=== PATIENT | female | born 1940 | race Caucasian/White ===

== ENCOUNTER 2018-01-28 14:55 | Inpatient (IN) | payer OTHER, SELFPAY ==
[2018-01-28] VITALS (8 sets, daily range): BP systolic 126–144; BP diastolic 39–64
[~2018-01-28] VITALS: Ht 160 cm; Wt 86.6 kg
[~2018-01-28 14:55] MED LIST: ALEVE220 MG PO; ASPIR 8181 MG PO; ASPIRIN325 PO; ATORVASTATIN CA40 MG PO; HYDROCODONE-AP1 EAC6 PO; IMDUR 30 MG TAB30 M1 PO; KLOR-CON 1010 MEQ PO; LANSOPRAZOLE15 MG PO; LISINOPRIL2.5 MG PO; LISINOPRIL5 MG PO; LOPRESSOR25 PO; MAXZIDE-25 MG1 EACH PO; NITROGLYCERIN0.4 MG SUBLING; PAXIL10 MG; PLAVIX 75 MG TA75 M1 PO; PRAVACHOL40 MG PO; PREMARIN0.3 MG PO; PREVACID 30MG C30 M1 PO; PROTONIX40 M1 PO; TRIAMTERENE-HC1 EAC1 PO; TYLENOL325 MG PO; VITAMIN B-12500 MCG PO
[2018-01-28] MEDS ORDERED: PLAVIX 75 MG TA75 M1 PO ×2 (15:13→20:43)
--- NOTE | 2018-01-28 15:20 | NUR ---
PT DISCUSSING PLAN OF CARE WITH ED PHYSICIAN. DR. GUAJARDO STATES THAT DR. PANTOJA IS SENDING PT TO [facility] FOR A TEMP PACEMAKER.
[2018-01-28 15:26] LABS: ABSOLUTE EOSINOPHILS 0.1 thou/uL (0.0-0.7); ABSOLUTE LYMPHOCYTES 2.4 thou/uL (0.8-5.3); ABSOLUTE MONOCYTES 0.9 thou/uL (0.0-1.2); ABSOLUTE NEUTROPHILS 8.2 thou/uL (1.6-8.1); BASOPHILS 0.4 %; HEMATOCRIT 37.3 % (37.0-47.0); HEMOGLOBIN 12.2 gm/dL (12.0-15.0); LYMPHOCYTES 20.3 %; MCH 29.3 pg (26.0-34.0); MCHC 32.7 g/dL (28.0-37.0); MCV 89.4 fL (80.0-100.0); MONOCYTES 7.9 %; MPV 8.7 fl. (7.2-11.1); NUCLEATED RBCS 0 /100WBC; PLATELET COUNT* 298 thou/uL (150-400); POLYS 70.4 %; RBC 4.17 mil/uL (4.20-5.00); RDW-CV 14.5 % (10.5-14.5); WBC 11.6 thou/uL (4.0-11.0)
[2018-01-28 15:30] LABS: CALCIUM 9.6 mg/dL (8.5-10.1); CREATININE 1.5 mg/dL (0.6-1.3); POTASSIUM 4.7 mmol/L (3.5-5.1)
[2018-01-28 15:37] LABS: APTT 27.6 Seconds (25.0-31.3); INR 1.1; PROTIME 10.5 Seconds (9.20-11.50)
--- NOTE | 2018-01-28 15:43 | NUR ---
DR. PANTOJA SPEAKING WITH PT.
[2018-01-28 15:44] LABS: ALBUMIN 3.4 g/dL (3.4-5.0); TOTAL BILIRUBIN 0.3 mg/dL (<0.1-1.0); TOTAL PROTEIN 7.6 g/dL (6.4-8.2)
[2018-01-28 16:13] LABS: NT-PRO BRAIN NAT PEPTIDE 2160 pg/mL (<300); TROPONIN-I LEVEL <0.06 ng/mL (<0.06)
--- NOTE | 2018-01-28 16:48 | H ---
[address] [address] HISTORY AND PHYSICAL Name: MYNORCHATO L Room: [facility] Ling#: [id number] Admission: 01/28/18 Attend Phys: Discharge: 01/28/18 Date of : 44 Report #: [id number] THIS REPORT FOR: //name// CC: Filemon Palacio DATE OF SERVICE: 01/28/2018 INDICATION: Complete heart block. HISTORY OF PRESENT ILLNESS: The patient is a very pleasant 77-year-old female who is well known to myself. She has a history of coronary artery disease with previous percutaneous coronary intervention to the right coronary artery in 2014. She has normal left ventricular systolic function by studies. She has mild aortic stenosis. Cardiac risk factors include hypertension, hyperlipidemia and type 2 diabetes mellitus for which she takes medication. She has a history of bilateral carotid disease as well, status post both right and left carotid endarterectomy. Stress testing last year was unremarkable. For the last 3 days, she has been feeling fatigued. She has been having some midsternal discomfort. She especially noted this when walking around stores with her family today. She was seen in the Emergency Room and found to be in complete heart block. She at present is not having chest discomfort. PAST MEDICAL HISTORY: 1. Coronary artery disease. 2. Carotid artery disease. 3. Diabetes. 4. Hyperlipidemia. 5. Hypertension. 6. Mild aortic stenosis. PAST SURGICAL HISTORY: Right carotid endarterectomy, left carotid endarterectomy, hysterectomy, percutaneous coronary intervention. FAMILY HISTORY: Positive for coronary artery disease. SOCIAL HISTORY: The patient quit smoking remotely. She drinks alcohol rarely. HOME MEDICATIONS: Aspirin 325 mg p.o. daily, Lipitor 40 mg p.o. at bedtime, Plavix 75 mg daily, Imdur 60 mg daily, lisinopril 20 mg daily, triamterene/hydrochlorothiazide 75/50 one tablet daily, potassium chloride 10 mEq daily, Protonix 40 mg q.a.m., Zantac 150 mg b.i.d., metformin 500 mg daily, Nitrostat p.r.n., Tylenol p.r.n., vitamin D 1000 units daily, diltiazem [address] [place] [address] HISTORY AND PHYSICAL Name: CHATO LOWE Room: [facility]#: [id number] Admission: 01/28/18 Attend Phys: Discharge: 01/28/18 Date of : 44 Report #: [id number]. REVIEW OF SYSTEMS: A 14-point review of systems as per HPI, otherwise unremarkable. PHYSICAL EXAMINATION: VITAL SIGNS: Blood pressure is 181/57 with a pulse rate of 37. GENERAL: She is a pleasant lady who is not in distress. HEENT: Extraocular muscles intact. Mucous membranes are moist. NECK: Shows no jugular venous distention. CHEST: Reveals clear lung solares. CARDIOVASCULAR: Reveals a bradycardic rhythm that is regular. There is a soft grade 1-2/6 systolic ejection murmur heard at the right upper sternal border. ABDOMEN: Reveals normal bowel sounds. Abdomen is soft, nontender. EXTREMITIES: Shows no edema. Peripheral pulses are palpable. SKIN: Warm and dry. LABORATORY DATA: A 12-lead EKG shows complete heart block. IMPRESSION AND RECOMMENDATIONS: 1. New onset complete heart block. We will take to the catheterization lab for urgent temporary pacemaker placement. The patient will likely require permanent pacemaker, which will be arranged in the next day or so. 2. Coronary artery disease, presently appears stable. We will get serial enzymes to see if the patient has any suggestion of myocardial infarction. We will continue home medications as outlined above. 3. Hypertension. Blood pressure moderately elevated. We will adjust medications while in hospital. 4. Hyperlipidemia. Continue current dose of atorvastatin. 5. Carotid vascular disease, presently stable. 6. Diabetes. We will continue home medications outlined above. <ELECTRONICALLY SIGNED> By: Kamlesh Parker MD, FACC 01/28/18 1648 161 41Kamlesh Parker MD, FACC /nt
--- NOTE | 2018-01-28 16:59 | CARD ---
[address] [address] CARDIAC CATH REPORT Name: CHATO LOWE Room: [facility] Ling#: [id number] Admission: 01/28/18 Attend Phys: Discharge: 01/28/18 Date of : 44 Report #: [id number] THIS REPORT FOR: //name// APPROVED REPORT Study performed: 01/28/2018 15:41:12 Patient Status: ED Room #: Event Personnel: Kamlesh Parker Mining Engineering Technologist, Perla Gonzalez RN Quickbooks Bookkeeper, Margarita Lambert Monitor, Neil Bradshaw Scrub Exam: temporary pacemaker placement Indications: Complete Heart Block The patient is a 77 year-old female with a history of Complete Heart Block. Conscious Sedation Start time: 16:12 End Time: 16:30 Procedure The patient underwent informed consent. We discussed the details of the procedure including the risks, which include, but not limited to bleeding, infection, vascular damage, cardiac perforation, and pneumothorax. After informed consent was obtained the patient was brought to the cardiac catheterization lab. The area of the right groin was prepped and draped in sterile fashion. Local anesthesia was achieved with 1% lidocaine. Next the right femoral vein was accessed using the percutaneous technique. A 6 Cypriot venous sheath was placed. Next a temporary pacing wire was advanced to a secure position within the right ventricular apex under fluoroscopic guidance. Thresholds were checked and deemed to be satisfactory. The sheath was sutured in place. The temporary or pacing lead was secured using the attached sterile sheath. The patient tolerated she is well without consultation. She was then transported to the ICU in stable condition. Conclusion 1. Complete heart block. 2. Successful placement of a temporary pacemaker via the right [place] [address] CARDIAC CATH REPORT Name: CHATO LOWE Room: [facility]#: [id number] Admission: 01/28/18 Attend Phys: Discharge: 01/28/18 Date of : 44 Report #: [id number] 1. Observe overnight in the intensive care unit. Consider dual-chamber pacemaker placement in the near future. <ELECTRONICALLY SIGNED> By: Kamlesh Parker MD, FACC 01/28/181658 58 58Micdevin Parker MD, FACC /INF
--- NOTE | 2018-01-28 17:53 | NUR ---
RECEIVED REPORT FROM TILE DESIGNER AROUND 1630. PT HAD TEMP PACMAKER PLACED. ASSESSMENT CHARTED. AFEBRILE. PT DENIES CHEST PAIN BUT REPORTS HAVING SOME NAUSEA. PACEMAKER WAS NOT CAPTURING AFTER DR PANTOJA LEFT AROUND 1715. CALLED PHYSICAN AND ORDERS TO TURN MA TO 20 AND PHYSICAN WILL BE BY THIS EVENING TO FURTHER ASSESS. WILL CONTINUE TO MONITOR.
[2018-01-28] MEDS ORDERED: LISINOPRIL20 MG PO (20:47)
[2018-01-28] MEDS ORDERED: MAXZIDE-25 MG1 EACH PO (20:49)
[2018-01-28] MEDS ORDERED: ZANTAC 150MG T150 M1 PO (20:52)
[2018-01-28] MEDS ORDERED: METFORMIN HCL500 MG PO (20:57)
[2018-01-28] MEDS ORDERED: VITAMIN D1000 UNI1 PO (20:59)
[2018-01-28] MEDS ORDERED: CARDIZEM CD180 MG PO (21:02)
[2018-01-29] VITALS (14 sets, daily range): BP systolic 108–160; BP diastolic 31–83
[2018-01-29 05:04] LABS: ANION GAP 14 mmol/L (7-16); BUN 26 mg/dL (7-18); CALCIUM 9.4 mg/dL (8.5-10.1); CHLORIDE 101 mmol/L (98-107); CHOLESTEROL 191 mg/dL (<200); CO2 22 mmol/L (21-32); CREATININE 1.2 mg/dL (0.6-1.3); GLUCOSE 131 mg/dL (70-99); HDL CHOLESTEROL 45 mg/dL (>40); LDL CHOLESTEROL 116 mg/dL (<100); POTASSIUM 4.3 mmol/L (3.5-5.1); SODIUM 137 mmol/L (136-145); TC:HDL 4.2 Ratio (Not establshd); TRIGLYCERIDE 150 mg/dL (<150); VLDL 30 mg/dL (<40)
--- NOTE | 2018-01-29 05:12 | NUR ---
PT. HAS REMAINED V-PACED THROUGHOUT SHIFT WITH TEMPORARY PACEMAKER IN PLACE IN RIGHT GROIN, SITE REMAINS CLEAN/DRY/INTACT. C/O HEADACHE THIS SHIFT, TYLENOL GIVEN PER PRN ORDER. PT. URINATES FREQUENTLY, CONTINENT OF URINE, USES BEDPAN. IS COMPLIANT IN KEEPING RIGHT LEG STRAIGHT WHEN TURNING. RIGHT AND LEFT IV SITES REMAIN SALINE LOCKED. POSSIBLE PERMANENT PACEMAKER PLACEMENT TODAY BY DR. PANTOJA. CALL LIGHT IN PLACE, WILL CONITNUE TO MONITOR.
[2018-01-29 05:23] LABS: SERUM ASSESSMENT Clear
--- NOTE | 2018-01-29 10:40 | NUR ---
SPOKE WITH PT. PT ADMITTED YESTERDAY WITH HEART BLOCK AND HAS A TEMPORARY PACEMAKER, TO GET A PERMANENT PACEMAKER TODAY. PT HAS NO QUESTIONS ABOUT PROCEDURE. PT LIVES ALONE, HAS BEEN INDEP AT HOME. HER DTR LIVES RIGHT DOWN THE STREET, DTR HAS LUNG CANCER SO IS LIMITED IN HOW MUCH SHE CAN ASSIST. PT HAS A SON WHO LIVES NEARBY. PT SAID HER ADULT GRANDDAUGHTER CAN HELP HER AT DISCHARGE AND SHE HAS A FRIEND THAT MAY STAY WITH HER A COUPLE OF DAYS WHEN SHE FIRST GOES HOME. PT DENIES ANY DISCHARGE NEEDS, IS HOPING SHE CAN GO HOME TOMORROW.
--- NOTE | 2018-01-29 11:12 | EKG ---
[place] [address] ELECTROCARDIOGRAM REPORT Name: CHATO LOWE Room: [address] IN ..#: [id number] Admission: 01/28/18 Attend Phys: Kamlesh Parker MD Discharge: Date of : 44 Report #: [id number] THIS REPORT FOR: //name// [facility] ED Test Date: 2018-01-28 Test Time: 15:14:02 Pat Name: CHATO LOWE Department: Room: Gender: F Fixer Boarding Room: : 1940 Requested By: Lenore Palacio Order Number: [id number] MD: Filemon Duarte Measurements Intervals [place] Rate: 37 P: 51 SD: QRS: 30 QRSD: 105 T: 77 QT: 520 QTc: 408 Interpretive Statements AV block, complete (third degree) Low voltage, precordial leads Compared to ECG 04/12/2016 21:14:06 Sinus rhythm no longer present Electronically Signed On 01-29-2018 11:12:09 CDT by Filemon Duarte [email or web address] <ELECTRONICALLY SIGNED> By: Filemon Duarte MD, [facility] 01/29/18 1112 1514 1514 Filemon Duarte MD, [facility] /EPI
--- NOTE | 2018-01-29 11:41 | NUR ---
PT LEFT FOR PERMANENT PACEMAKER PLACEMENT AT 1130 ACCOMPANIED BY BODY DESIGNER NURSE AND TECH.
--- NOTE | 2018-01-29 15:29 | NUR ---
RECEIVED REPORT AND ASSUMED CARE AT 1355. PT WAS TRANSFERED FROM ICU TO RM 215 POST PERMANENT PACEMAKER PLACEMENT. PT A&OX4, ON RA. PT ON BEDREST UNITL 1700. PT DENIES ANY COMPLAINTS OF PAIN. ASSESSMENT COMPLETED. AM MEDICATIONS HELD FOR PROCEDURE WERE GIVEN AT THIS TIME. DISCUSSED PLAN OF CARE WITH PT. PT VERBALIZED UNDERSTANDING. WILL CONTINUE TO MONITOR FOR THE REMAINDER OF THE SHIFT
--- NOTE | 2018-01-29 16:08 | EKG ---
[place] [address] ELECTROCARDIOGRAM REPORT Name: CHATO LOWE Room: [address] ADM IN .R.#: [id number] Admission: 01/28/18 Attend Phys: Kamlesh Parker MD Discharge: Date of : 44 Report #: [id number] THIS REPORT FOR: //name// [facility] Test Date: 2018-01-29 Test Time: 13:17:46 Pat Name: CHATO LOWE Department: Room: [address] Gender: F Dry Room Operator: [facility] : 1940 Requested By: Kamlesh Parker Order Number: [id number] Reading MD: Filemon Duarte Measurements Intervals [place] Rate: 70 P: 45 [place]: 171 QRS: 79 QRSD: 140 T: 247 QT: 453 QTc: 489 Interpretive Statements Atrial-sensed ventricular-paced complexes No further analysis attempted due to paced rhythm Compared to ECG 01/28/2018 15:14:02 paced beats noted Electronically Signed On 01-29-2018 16:08:48 CDT by Filemon Duarte [email or web address] <ELECTRONICALLY SIGNED> By: Filemon Duarte MD, [facility] 01/29/18 1608 1317 1317 Filemon Duarte MD, [facility] /EPI
[2018-01-29 17:26] LABS: CALCIUM 9.1 mg/dL (8.5-10.1); CREATININE 1.4 mg/dL (0.6-1.3); POTASSIUM 4.5 mmol/L (3.5-5.1)
--- NOTE | 2018-01-29 19:08 | NUR ---
PT IN ROOM WITH FAMILY. VSS, CARDIAC MONITOING IN PLACE. PT ON RA, UP SBA WITH BRP. PT DENIES ANY COMPLAINTS OF PAIN. PT HAS SLIN ON L ARM, PACEMAKER INCISION DRESSING INTACT. BED ALARM WITHIN REACH, BED IN LOWEST POSITION. WILL CONTINUE TO MONITOR FOR REMAINDER OF THE SHIFT
[2018-01-30 04:00] VITALS: BP 116/47
--- NOTE | 2018-01-30 07:45 | NUR ---
PT RESTING COMFORTABLY IN BED AT THIS TIME. PT RE-EDUCATED TO KEEP L ARM CLOSE TO BODY AND REFRAIN FROM LIFTING SHOULDER/ARM. PT STATED SHE UNDERSTOOD AND THAT SHE HAD JUST FORGOT UPON WAKING. SLING READJUSTED PER PT REQUEST. PT CALM AND COOPERATIVE AT THIS TIME, PT DENIES PAIN AT THIS TIME. WILL CONTINUE TO MONITOR AND ASSESS
[2018-01-30 08:20] VITALS: BP 115/56
[2018-01-30 08:21] VITALS: BP 116/47
--- NOTE | 2018-01-30 10:51 | EKG ---
[place] [address] ELECTROCARDIOGRAM REPORT Name: CHATO LOWE Room: [address] ADM IN M.R.#: [id number] Admission: 01/28/18 Attend Phys: Kamlesh Parker MD Discharge: Date of : 44 Report #: [id number] THIS REPORT FOR: //name// [facility] Test Date: 2018-01-30 Test Time: 07:51:59 Pat Name: CHATO LOWE Department: Room: [address] Gender: F Shellfish Harvester: : 1940 Requested By: Kamlesh Parker Order Number: [id number] Reading MD: Filemon Duarte Measurements Intervals [place] Rate: 67 P: 45 [place]: 181 QRS: 68 QRSD: 116 T: 261 QT: 428 QTc: 452 Interpretive Statements Sinus rhythm nonspecific t wave changes Vent pre-excit'n(WPW), right access'y pathway Compared to ECG 01/29/2018 13:17:46 Atrial-sensed ventricular-paced complex(es) or rhythm no longer present Electronically Signed On 01-30-2018 10:50:48 CDT by Filemon Duarte [email or web address] <ELECTRONICALLY SIGNED> By: Filemon Duarte MD, [facility] 01/30/18 1050 0751 0751 Filemon Duarte MD, [facility] /EPI
--- NOTE | 2018-01-30 10:52 | EKG ---
[place] [address] ELECTROCARDIOGRAM REPORT Name: CHATO LOWE Room: [address] ADM IN .R.#: [id number] Admission: 01/28/18 Attend Phys: Kamlesh Parker MD Discharge: Date of : 44 Report #: [id number] THIS REPORT FOR: //name// [facility] Test Date: 2018-01-30 Test Time: 07:52:47 Pat Name: CHATO LOWE Department: Room: [address] Gender: F State Attorney: : 1940 Requested By: Kamlesh Parker Order Number: [id number] Reading MD: Filemon Duarte Measurements Intervals [place] Rate: 83 P: 19 IN: 140 QRS: 73 QRSD: 101 T: 262 QT: 436 QTc: 513 Interpretive Statements Atrial-ventricular dual-paced complexes sinus rhythm Electronically Signed On 01-30-2018 10:52:09 CDT by Filemon Duarte [email or web address] <ELECTRONICALLY SIGNED> By: Filemon Duarte MD, [facility] 01/30/18 1052 0752 0752 Filemon Duarte MD, FACC /EPI
[2018-01-30 11:45] VITALS: BP 136/54
--- NOTE | 2018-01-30 14:17 | NUR ---
VSS. PT AND FAMILY VERBALIZED UNDERSTANDING OF DC INSTRUCTIONS AND MEDICATIONS. PT IV REMOVED INTACT WITH NO COMPLICATIONS. PT AMBULATED OUT OF HOSPITAL WITH STEADY GAIT.
--- NOTE | 2018-01-30 18:36 | CARD ---
[address] [address] CARDIAC CATH REPORT Name: CHATO LOWE Room: [address]#: [id number] Admission: 01/28/18 Attend Phys: Kamlesh Parker MD Discharge: 01/30/18 Date of : 44 Report #: [id number] THIS REPORT FOR: //name// APPROVED REPORT Study performed: 01/29/2018 11:17:07 Patient Status: In-Patient Room #: Event Personnel: Shantal Barragan RN Mothercraft Nurse, David Sewell (R) Monitor, Justin Hurt Liston, Michael Syrup Mixer Assistant Exam: Insertion of Dual Chamber Permanent Pacemaker Indications: Complete Heart Block The patient is a 77 year-old female with a history of complete heart block. Conscious Sedation Start time: 12:03 End Time: 12:41 Fentanyl 25 mcg Versed 2 mg Implanted Devices: Biotronik Eluna 8 DR-T ProMRI, model #033106, serial number [id number]. Biotronik Solia S 45, model #599431, serial number [id number]. Biotronik Solia S 53, model #044883, serial #[id number]. Procedure The patient underwent informed consent. We discussed the details of the procedure including the risks, which include, but not limited to bleeding, infection, vascular damage, cardiac perforation, and pneumothorax. After informed consent was obtained the patient was brought to the interventional radiology lab. The area of the left chest was prepped and draped in sterile fashion. Local anesthesia was achieved with 1% lidocaine. Next after an initial incision was made a device pocket was formed over the left pectoralis muscle using a left coronary and blunt dissection. Next using a micropuncture kit the left subclavian vein was accessed and a safety J guidewire ultimately advanced to the level of the right atrium under fluoroscopic guidance. The guidewire was secured externally with a Vida forcep. Utilizing the micropuncture kit a second time the left subclavian vein was accessed. A second safety J guidewire was advanced [place] [address] CARDIAC CATH REPORT Name: CHATO LOWE Room: [address]#: [id number] Admission: 01/28/18 Attend Phys: Kamlesh Parker MD Discharge: 01/30/18 Date of : 44 Report #: [id number] right atrium under fluoroscopic guidance. Next a 7 Chilean tear-away introducer was advanced over the free guidewire. Dilator and guidewire were removed and a right ventricular lead advanced to a secure position along the right ventricular septum under fluoroscopic guidance. The lead was actively fixed. Thresholds were checked and deemed to be satisfactory. The tear-away introducer was removed. Next utilizing the remaining guidewire a second 6 Chilean tear-away introducer was advanced. The dilator and guidewire were removed has a right atrial lead was advanced to a secure position within the right atrial appendage. The lead was actively fixed. Thresholds were checked and deemed to be satisfactory. The tear-away introducer was then removed. There was no diaphragmatic or phrenic nerve stimulation with maximal outputs. After ensuring adequate slack the atrial and ventricular leads were then secured within the device pocket using the designated cuff and interrupted stitches of 2-0 silk suture. The device pocket was then flushed with antibiotic solution. Next a dual-chamber pulse generator was attached to the atrial and ventricular leads. The pulse generator and redundant lead were then placed within the device pocket. The deep tissues were closed with interrupted stitches of 2-0 Vicryl. The skin incision was then closed with a single subcuticular stitch of 4-0 Vicryl. Several Steri-Strips were placed across the incision. A sterile Telfa dressing was then covered with a Tegaderm. The patient tolerated well without complication. Electrode Parameters P Wave: 3.10 mV R Wave: 5.50 mV Atrial Threshold: 0.6 V at 0.40 ms Ventricular Threshold: 0.8 V at 0.40 ms Atrial Resistance: 565 ohms Ventricular Resistance: 624 ohms Mode: DDD Lower pacing rate 60 bpm Upper tracking rate 130 bpm Mode switch rate 160 bpm Conclusion 1. Complete heart block. 2. Successful implantation of a dual-chamber pacemaker with atrial and ventricular [place] [address] CARDIAC CATH REPORT Name: CHATO LOWE Room: [address] IN [facility].#: [id number] Admission: 01/28/18 Attend Phys: Kamlesh Parker MD Discharge: 01/30/18 Date of : 44 Report #: [id number] Recommendations 1. Follow-up site check in one week. <ELECTRONICALLY SIGNED> By: Kamlesh Parker MD, FACC 01/30/181835 35 35Micdevin Parker MD, FACC /INF
--- NOTE | 2018-02-01 13:20 | D ---
[facility] [address] [place] [address] DISCHARGE SUMMARY Name: CHATO LOWE Room: [address]#: [id number] Admission: 01/28/18 Attend Phys: Kamlesh Parker MD Discharge: 01/30/18 Date of : 44 Report #: [id number] THIS REPORT FOR: //name// CC: Filemon Parker DATE OF SERVICE: 01/30/2018 HOSPITAL COURSE: The patient was admitted through the Emergency Room with complete heart block. The patient received a temporary pacemaker on 01/28/2018. The following day the patient underwent dual chamber pacemaker placement without complication. She is being discharged to home in stable condition. DISCHARGE DIAGNOSES: 1. Complete heart block. 2. Status post dual chamber pacemaker placement. 3. Coronary artery disease. 4. Hypertension. 5. Hyperlipidemia. 6. Diabetes. 7. Mild aortic stenosis. 8. Previous right and left carotid endarterectomy. 9. Remote hysterectomy. 10. Percutaneous coronary intervention remotely. DISCHARGE MEDICATIONS: Include aspirin 325 mg p.o. daily, Lipitor 40 mg at bedtime, Plavix 75 mg daily, Imdur 60 mg daily, lisinopril 20 mg daily, Maxzide 75/50 one tablet daily, potassium chloride 10 mEq daily, Protonix 40 mg q.a.m., Zantac 150 mg b.i.d., metformin 500 mg daily, Nitrostat p.r.n., Tylenol p.r.n., vitamin D 1000 units daily and diltiazem 180 mg daily. DISPOSITION: The patient is to follow up with the Cardiology office in 1 week for a site check and in 1-2 months for pacemaker interrogation. <ELECTRONICALLY SIGNED> By: Kamlesh Parker MD, FACC 02/01/18 1320 1300 1656Micdevin Parker MD, FACC /nt
--- NOTE | 2018-02-01 15:10 | NUR ---
Talked with the patient by phone, states she is doing well, pacer insertion site is healing well. Reports being sore. She does not have any lightheadedness or dizziness but does have intermittent visual disturbances. States she sees silver shapes, has had this in the past and several times since she was hospitalized. Has reported this to her primary Dr. Instructed to call him back if these episodes became more frequent and to talk with the cardiology TOP CLEANER about it on Monday. She had no other concerns at this time.
== END 2018-01-30 14:15 | disposition home or self-care (01) | DRG 243 ==
LOC: M.CL 14:55 → M.ERS 14:55 → M.2W 16:42 → M.ICU 16:42 → M.2W 01-29 14:12
PROVIDERS: Personal Emergency Response Attendant; ADMIT Internal Medicine Cardiovascular Disease
PROC: 5A1223Z Performance of Cardiac Pacing, Continuous (ICD-10-PCS; principal; 2018-01-28)
PROC: 02H63JZ Insertion of Pacemaker Lead into Right Atrium, Percutaneous Approach (ICD-10-PCS; 2018-01-30)
PROC: 02HK3JZ Insertion of Pacemaker Lead into Right Ventricle, Percutaneous Approach (ICD-10-PCS; 2018-01-30)
PROC: 0JH606Z Insertion of Pacemaker, Dual Chamber into Chest Subcutaneous Tissue and Fascia, Open Approach (ICD-10-PCS; 2018-01-30)
DX: I44.2 Atrioventricular block, complete (principal); N17.9 Acute kidney failure, unspecified; I12.9 Hypertensive chronic kidney disease with stage 1 through stage 4 chronic kidney disease, or unspecified chronic kidney disease; N18.3 Chronic kidney disease, stage 3 (moderate); I25.10 Atherosclerotic heart disease of native coronary artery without angina pectoris; K21.9 Gastro-esophageal reflux disease without esophagitis; M19.90 Unspecified osteoarthritis, unspecified site; I35.0 Nonrheumatic aortic (valve) stenosis; E11.22 Type 2 diabetes mellitus with diabetic chronic kidney disease; E11.51 Type 2 diabetes mellitus with diabetic peripheral angiopathy without gangrene; E78.5 Hyperlipidemia, unspecified; Z95.5 Presence of coronary angioplasty implant and graft; Z90.710 Acquired absence of both cervix and uterus; Z87.891 Personal history of nicotine dependence; Z90.49 Acquired absence of other specified parts of digestive tract; Z86.73 Personal history of transient ischemic attack (TIA), and cerebral infarction without residual deficits; Z79.02 Long term (current) use of antithrombotics/antiplatelets; Z79.82 Long term (current) use of aspirin; Z79.899 Other long term (current) drug therapy; Z88.8 Allergy status to other drugs, medicaments and biological substances; Z91.041 Radiographic dye allergy status; Z91.013 Allergy to seafood; Z82.49 Family history of ischemic heart disease and other diseases of the circulatory system

== ENCOUNTER → 2019-01-21 | Outpatient (CLI) | payer OTHER ==
[~2019-01-21] MED LIST changes: +CARDIZEM CD180 MG PO; +LISINOPRIL20 MG PO; +METFORMIN HCL500 MG PO; +VITAMIN D1000 UNI1 PO; +ZANTAC 150MG T150 M1 PO
== END ==
LOC: M.RAD 10:06
DX: R05 Cough (principal)

== ENCOUNTER → 2019-01-25 | Outpatient (CLI) | payer OTHER ==
[2019-01-25 15:17] LABS: ABSOLUTE BASOPHILS 0.1 thou/uL (0.0-0.2); ABSOLUTE EOSINOPHILS 0.2 thou/uL (0.0-0.7); ABSOLUTE LYMPHOCYTES 2.2 thou/uL (0.8-5.3); ABSOLUTE MONOCYTES 0.5 thou/uL (0.0-1.2); ABSOLUTE NEUTROPHILS 6.3 thou/uL (1.6-8.1); BASOPHILS 0.8 %; HEMATOCRIT 31.2 % (37.0-47.0); HEMOGLOBIN 10.1 gm/dL (12.0-15.0); LYMPHOCYTES 23.7 %; MCH 26.6 pg (26.0-34.0); MCHC 32.5 g/dL (28.0-37.0); MCV 81.8 fL (80.0-100.0); MONOCYTES 5.9 %; MPV 7.5 fl. (7.2-11.1); NUCLEATED RBCS 0 /100WBC; PLATELET COUNT* 442 thou/uL (150-400); POLYS 67.6 %; RBC 3.81 mil/uL (4.20-5.00); RDW-CV 16.3 % (10.5-14.5); WBC 9.3 thou/uL (4.0-11.0)
== END ==
LOC: M.CT 13:45
PROVIDERS: Internal Medicine
DX: Z88.8 Allergy status to other drugs, medicaments and biological substances (principal); K75.3 Granulomatous hepatitis, not elsewhere classified; I70.0 Atherosclerosis of aorta; I70.8 Atherosclerosis of other arteries; Z90.710 Acquired absence of both cervix and uterus; Z91.013 Allergy to seafood

== ENCOUNTER → 2019-07-16 | Outpatient (CLI) | payer OTHER ==
--- NOTE | 2019-07-16 12:06 | 2DMMODE ---
[place] [address] 2 D/M-MODE ECHOCARDIOGRAM Name: CHATO LOWE Room: [facility]#: [id number] Admission: 07/16/19 Attend Phys: Taisha Barton Discharge: Date of : 44 Date of Service: 07/16/19 1206 Report #: [id number] THIS REPORT FOR: //name// APPROVED REPORT Study performed: 07/16/2019 10:09:42 EXAM: Comprehensive 2D, Doppler, and color-flow Echocardiogram Patient Location: Out-Patient BSA: 1.82 HR: 68 bpm BP: 116/54 mmHg Other Information Study Quality: Good Indications Aortic Valve Disease 2D Dimensions IVSd: 11.42 (7-11mm) LVOT Diam: 20.03 (18-24mm) LVDd: 47.67 mm PWd: 11.27 (7-11mm) Ascending Ao: 27.54 (22-36mm) LVDs: 24.05 (25-40mm) Aortic Root: 28.56 mm Volumes Left Atrial Volume (Systole) LA ESV Index: 17.40 mL/m2 Aortic Valve AoV Peak Segun.: 2.16 m/s AO Peak Gr.: 18.67 mmHg LVOT Max P.99 mmHg AO Mean Gr.: 10.82 mmHg LVOT Mean P.76 mmHg LVOT Max V: 1.41 m/s AO V2 VTI: 51.85 cm LVOT Mean V: 0.88 m/s AMIE (VTI): 2.36 cm2 LVOT V1 VTI: 38.88 cm Mitral Valve MV Peak Gr.: 11.71 mmHg MV Mean Gr.: 5.18 mmHg E/A Ratio: 0.90 MV Decel. Time: 319.08 ms MV E Max Segun.: 1.46 m/s MV PHT: 92.53 [place] [address] 2 D/M-MODE ECHOCARDIOGRAM Name: CHATO LOWE Room: [facility]#: [id number] Admission: 07/16/19 Attend Phys: Taisha Barton Discharge: Date of : 44 Date of Service: 07/16/19 1206 Report #: [id number] MVA (PHT): 2.38 cm2 TDI E/Lateral E': 14.60 E/Medial E': 14.60 Medial E' Segun.: 0.10 m/s Lateral E' Segun.: 0.10 m/s Pulmonary Valve PV Peak Segun.: 1.06 m/s PV Peak Gr.: 4.47 mmHg Tricuspid Valve RAP Estimate: 5.00 mmHg TR Peak Gr.: 29.45 mmHg RVSP: 34.45 mmHg PA Pressure: 34.45 mmHg Left Ventricle The left ventricle is normal size. There is normal LV segmental wall motion. There is normal left ventricular wall thickness. Left ventricular systolic function is normal. LVEF is 55-60%. Transmitral Doppler flow pattern suggests impaired LV relaxation. Right Ventricle The right ventricle is normal size. The right ventricular systolic function is normal. Pacemaker lead is present in the right ventricle. Atria Left atrium is mildly dilated. The right atrium size is normal. Aortic Valve Aortic valve is mildly calcified. No aortic regurgitation is present. Mild aortic stenosis. Mitral Valve Moderate mitral annular calcification. The mitral valve is mildly thickened. Mild mitral regurgitation. Mild mitral stenosis. Tricuspid Valve The tricuspid valve is normal in structure. Mild tricuspid regurgitation. The RVSP is 35-40 mmHg. Pulmonic Valve The pulmonary valve is normal in structure. Mild [place]mon[place] [address] 2 D/M-MODE ECHOCARDIOGRAM Name: MYNORCHATO L Room: [facility]#: [id number] Admission: 07/16/19 Attend Phys: Taisha Barton Discharge: Date of : 44 Date of Service: 07/16/19 1206 Report #: [id number] Great Vessels The aortic root is normal in size. IVC is normal in size and collapses >50% with inspiration. Pericardium There is no pericardial effusion. <Conclusion> The left ventricle is normal size. There is normal left ventricular wall thickness. Left ventricular systolic function is normal. LVEF is 55-60%. Transmitral Doppler flow pattern suggests impaired LV relaxation. Pacemaker lead is present in the right ventricle. Left atrium is mildly dilated. Aortic valve is mildly calcified. Mild aortic stenosis. Moderate mitral annular calcification. The mitral valve is mildly thickened. Mild mitral regurgitation. Mild mitral stenosis. Mild tricuspid regurgitation. The RVSP is 35-40 mmHg. IVC is normal in size and collapses >50% with inspiration. <ELECTRONICALLY SIGNED> By: Kamlesh Parker MD, FACC 07/16/19 120 05 05 Kamlesh Parker MD, FACC /INF
== END ==
LOC: M.CRD 09:56
DX: I08.8 Other rheumatic multiple valve diseases (principal); Z88.8 Allergy status to other drugs, medicaments and biological substances

== ENCOUNTER → 2020-09-07 | Outpatient (CLI) | payer OTHER | LOC: M.RAD 06:46 | PROVIDERS: ATTEND Internal Medicine | DX: Z12.31 Encounter for screening mammogram for malignant neoplasm of breast (principal) ==

== ENCOUNTER → 2020-09-16 | Outpatient (CLI) | payer OTHER | LOC: M.ULTRA 09:49 | PROVIDERS: ATTEND Internal Medicine | DX: N63.11 Unspecified lump in the right breast, upper outer quadrant (principal); R92.2 Inconclusive mammogram; R92.8 Other abnormal and inconclusive findings on diagnostic imaging of breast ==

== ENCOUNTER → 2021-09-07 | Outpatient (CLI) | payer OTHER | LOC: M.RAD 08:49 | PROVIDERS: ATTEND Internal Medicine | DX: Z12.31 Encounter for screening mammogram for malignant neoplasm of breast (principal) ==